=== PATIENT | female | born 1990 | race Caucasian/White ===

== ENCOUNTER 2017-04-28 18:25 | Observation (INO) ==
[2017-04-28 20:13] LABS: Amphetamine Screen,Urine Negative ng/mL (Cutoff=1000); Barbiturate Screen,Urine Negative ng/mL (Cutoff=200); Benzodiazepines Screen,Urine Negative ng/mL (Cutoff=200); Cannabinoid Screen,Urine Negative ng/mL (Cutoff = 50); Cocaine Screen,Urine Negative ng/mL (Cutoff= 300); Opiate Screen,Urine Negative ng/mL (Cutoff=300); Phencyclidine Screen,Urine Negative ng/mL (Cutoff=25)
--- NOTE | 2017-04-28 21:02 | OB/GYN Progress Note ---
Date of Encounter: 04/28/17 Time of Encounter: 21:00 - Assessment and Plan (1) 41 weeks gestation of Current Visit: Yes Status: Acute (2) NST (non-stress test) reactive Current Visit: Yes Status: Acute NST reactive baseline 125. Discharged home with when to call precautions. Discussed with patient risks of continuing past 41 weeks and increase risks of stillbirth and compromise at . Pt verbalizes understanding. Subjective - Subjective Interval history: presents to labor and delivery 41+1 gestation here for NST following office visit. Reports good movement, rare contraction, denies vaginal bleeding or leaking of fluid. Pt states scheduled for IOL tomorrow AM . Antepartum ROS: movement normal, contractions, no loss of fluid, no vaginal bleeding Objective - Vital Signs Vital Signs: Intake and Output 04/28/17 04/28/17 04/28/17 07:59 15:59 23:59 Other: Weight 90.1 kg Patient Weight 04/28/17 23:59 Weight 90.1 kg - Exam FHR: auscultation normal FHR comments: Baseline 125 Auscultation: bilateral: normal Abdomen: Present: normal appearance, soft, gravid Uterus: Present: normal
== END 2017-04-28 21:05 | disposition home or self-care (01) ==
LOC: 1NENULAB
PROVIDERS: ADMIT Obstetrics & Gynecology; ATTEND Obstetrics & Gynecology

== ENCOUNTER 2017-04-29 08:00 | Inpatient (IN) ==
[2017-04-29] MEDS ORDERED: *HR* Nalbuphine 20 MG/ML AMPUL IVP PRN (12:47)
[2017-04-29] MEDS ORDERED: Naloxone 0.4 MG/ML INJ IVP PRN (12:47)
[2017-04-29] MEDS ORDERED: Metoclopramide 10 MG/2 ML VIAL IVP PRN (12:47)
[2017-04-29] MEDS ORDERED: Ondansetron 4 MG/2 ML VIAL IVP PRN (12:47)
[2017-04-29] MEDS ORDERED: miSOPROStol 25 MCG TABLET PO PRN (12:47)
[2017-04-29] MEDS ORDERED: Famotidine 20 MG/2 ML VIAL IVP PRN (12:47)
--- NOTE | 2017-04-29 12:53 | OB/GYN History & Physical ---
Date of Encounter: 04/29/17 Time of Encounter: 13:40 Assessment and Plan (1) 41 weeks gestation of Current visit: Yes Status: Acute Patient is 41w2d presents to L&D for scheduled induction of labor due to postdates Hector induction with 50ml sterile water placed. Pt tolerated insertion well. GBS rapid swab due to previous being done on 03/23/17 LR 125ml/hr CBC UDS Intermittent monitoring. Plan History of Present Illness Chief complaint: Induction of Labor HPI: Ms. Clements is a 27 year old female at 41w2d presents to L&D for induction of labor due to being 41 weeks. Patient denies any contractions, loss of fluid vaginal bleeding or discharge. Reports good movement. Denies any complications with the . States that she is a patient of Dr. Tarun gar. Patient stated that should be prefer to be able to get up and move during her induction and she does have a plan. Blood type A positive GBS negative on 03/23/17 Rubella IgG Antibody Positive VZV IgG antibody Positive All other serologies negative Past Med Surg Social Fam HX - Past Medical History Medical history: no medical history Psychiatric history: depression - Past Surgical History Surgical History: no surgical history - Social History Smoking Status: Current every day smoker (States that she has cut back. Smoking 5 cigarettes a day) Smokeless Tobacco Status: No Alcohol use: none Drug use: none - Family History Mother Adopted: No Living Status: Still Living Hx Family Cardiac Disorders: No Hx Family Respiratory Disorders: No Hx Family Cancer: No Hx Family GI Disorders: No Hx Family Endocrine Disorder: Yes (hypothyroidism) Hx Family Neuromuscular Disorders: No Hx Family Neurologic Disorders: No Hx Family HEENT Disorders: No Hx Family Autoimmune Disorders: No Obstetrical History - Pregnancies : 1 Para: 0 Term: 0 : 0 Ab's: 0 Livin Medications and Allergies Ferrous Sulfate 324 mg PO DAILY 04/28/17 [History] Vitamins 1 tab PO DAILY 04/28/17 [History] 3 Allergy/AdvReac Type Severity Reaction Status Date / Time Sulfa (Sulfonamide Allergy Rash Verified 11/23/15 10:07 Antibiotics) Review of System OB All systems PM: reviewed and no additional remarkable complaints except as stated Exam - Constitutional Constitutional: well developed, well nourished, no acute distress, average body habitus - HEENT HEENT: Normocephaly, Mucus Membranes Moist - Neck Neck exam: full ROM - Lungs Respiratory exam: CTAB - Cardiovascular Cardiovascular exam: RRR, +S1, +S2 - Abdomen Abdomen: Present: bowel sounds normal, gravid, non tender - Extremities Extremities exam: full ROM, normal capillary refill - Vagina Vagina: Present: normal moisture - Cervix Dilation: 1 (Per Slot Machine Key Person) Effacement: 50 (Per coconut jelly roller) Station: -2 (Per coconut jelly roller) - Anus/Rectum Anus/Rectum: Present: normal perianal skin Results Result Diagrams: 04/29/17 12:42 All other labs normal. - VTE Reasons for not Prescribing Prophylaxis: Treatment not Indicated - Low risk for VTE
[2017-04-29] MEDS ORDERED: Ringers Solution, Lactated 1,000 ML IVC SCH (13:00)
[2017-04-29 13:02] LABS: Basophils # 0.1 K/mcL (0.0-0.2); Basophils % 0.4 %; Eosinophils # 0.2 K/mcL (0.0-0.6); Eosinophils % 1.3 %; Hematocrit 34.2 % (35.3-44.9); Hemoglobin 11.9 g/dL (11.5-15.4); Immature Granulocytes % 1.3 % (0-4); Lymphocytes # 2.6 K/mcL (0.6-4.6); Lymphocytes % 18.4 %; Mean Corpuscular HGB Conc 34.8 g/dL (31.6-35.5); Mean Corpuscular Hemoglobin 33.6 pg (28.0-33.3); Mean Corpuscular Volume 96.6 fL (83.0-100.0); Mean Platelet Volume 10.1 fL (9.4-12.4); Monocytes % 6.9 %; Neutrophils # 10.2 K/mcL (1.6-8.9); Platelet Count 281 K/mcL (140-400); Red Blood Count 3.54 M/mcL (3.82-4.97); Red Cell Distribution Width 12.6 % (11.5-14.5); Segmented Neutrophils % 71.7 %
[2017-04-29 13:08] LABS: Amphetamine Screen,Urine Negative ng/mL (Cutoff=1000); Barbiturate Screen,Urine Negative ng/mL (Cutoff=200); Benzodiazepines Screen,Urine Negative ng/mL (Cutoff=200); Cannabinoid Screen,Urine Negative ng/mL (Cutoff = 50); Cocaine Screen,Urine Negative ng/mL (Cutoff= 300); Opiate Screen,Urine Negative ng/mL (Cutoff=300); Phencyclidine Screen,Urine Negative ng/mL (Cutoff=25)
--- NOTE | 2017-04-29 14:44 | Anesthesia Evaluation PreOp ---
Date of Encounter: 04/29/17 Time of Encounter: 14:39 - Past History Planned Operation: vaginal del, G1 induction Cardiac History: Denies any Significant Hx, Other (murmur at , no limitations, MET's >10) Pulmonary History: Denies Any Significant HX DEVELOPMENT EXECUTIVE History: Denies Any Significant HX Other Medical History: Denies Any Significant HX Anesthesia History: Past Anesthesia (no prior anesthesia) : Yes Alcohol Use: none Drug use: none Medications and Allergies Ferrous Sulfate 324 mg PO DAILY 04/28/17 [History] Vitamins 1 tab PO DAILY 04/28/17 [History] 3 Allergy/AdvReac Type Severity Reaction Status Date / Time Sulfa (Sulfonamide Allergy Rash Verified 11/23/15 10:07 Antibiotics) Anesthesia Results - Labs 04/29/17 12:42 Anesthesia Exam - HEENT Pupil (Motor): Pupils equal Mallampati: II Teeth: Normal Oral Opening: Greater than 3 - DEVELOPMENT EXECUTIVE LOC: Oriented DEVELOPMENT EXECUTIVE Motor: Normal RUE, Normal LUE, Normal RLE, Normal LLE, Normal Face DEVELOPMENT EXECUTIVE Sensory: Normal: RUE, LUE, RLE, LLE, Face - Cardiac Rhythm: Regular Murmur: Systolic (1/6) - Pulmonary Breath Sounds: bilateral Clear Respiratory Effort: Symmetrical Anesthesia Assess/Plan ASA Score: 2 Modified [place] Scale for Level of Consciousness: Cooperative, oriented, and tranquil Anesthetic Plan: General, Regional Monitoring Plan: Standard Monitors
[2017-04-29] MEDS ORDERED: Epidural Premix (fent/bupiv) 110 ML EP ONE (14:51)
--- NOTE | 2017-04-29 17:06 | OB Labor Progress Note ---
Date of Encounter: 04/29/17 Time of Encounter: 17:04 Labor Progress Note - Subjective Subjective: Pt reports intermittent pain since sauer placement. - Heart Tones Heart Tones: Category I - [place]: irregular - Interventions Interventions: Sauer taped to leg - Plan Plan: Allow pt to ambulate. Will AROM when sauer out.
--- NOTE | 2017-04-29 22:13 | OB Labor Progress Note ---
Date of Encounter: 04/29/17 Time of Encounter: 22:11 Labor Progress Note - Subjective Subjective: Pt not feeling many contractions. - Cervix Cervix: //-2 - Heart Tones Heart Tones: Category I - [place]: irregular - Interventions Interventions: AROM for small amount clear fluid - Plan Plan: Continue to monitor. Allow pt to ambulate and/or use breastpump. Will consider cytotec or pitocin augmentation if needed after 1-2 hours.
--- NOTE | 2017-04-30 00:53 | OB Labor Progress Note ---
Date of Encounter: 04/30/17 Time of Encounter: 00:51 Labor Progress Note - Subjective Subjective: Pt in knee chest position breathing with contractions - Heart Tones Heart Tones: Category I - [place]: every 3-4 minutes per pt report. - Plan Plan: Continue to monitor. Anticipate .
[2017-04-30] MEDS ORDERED: Famotidine 20 MG/2 ML VIAL IVP ONE (01:22)
--- NOTE | 2017-04-30 01:25 | OB Labor Progress Note ---
Date of Encounter: 04/30/17 Time of Encounter: 01:23 Labor Progress Note - Subjective Subjective: Pt reports severe pain with contractions - Cervix Cervix: 5/90/-1 - Heart Tones Heart Tones: Category I - [place]: every 3-4 minutes per pt report. [place] not tracing well due to maternal movement. - Plan Plan: Pt may her Nubain and pepcid per her request. Anticipate .
[2017-04-30] MEDS ORDERED: Oxytocin 20 units/ LR 1000 mL 20 UNIT/1,000 ML BAG IVC ONE (03:05)
[2017-04-30] MEDS ORDERED: Oxytocin 20 units/ LR 1000 mL 20 UNIT/1,000 ML BAG IVC SCH ×2 (03:15→13:27)
--- NOTE | 2017-04-30 03:18 | OB Labor Progress Note ---
Date of Encounter: 04/30/17 Time of Encounter: 03:17 Labor Progress Note - Subjective Subjective: Pt starting to have worsening pain as Nubain is wearing off. - Cervix Cervix: 5/90/-1 - Heart Tones Heart Tones: Category II, periods of minimal variability, occassional early decelerations. - [place]: Q 4-5 - Plan Plan: Begin pitocin augmentation. Epidural as requested. Anticipate .
--- NOTE | 2017-04-30 04:05 | Anesthesia Procedures ---
Date of Encounter: 04/30/17 Time of Encounter: 03:49 Procedures: Anesthesia - Epidural/Spinal Patient ID/Chart reviewed: Yes Patient examined: Yes OB Eval: Gestational age: term OB Eval: : 1 OB Eval: Contractions: Non-stressed pattern Consent Obtained: Yes Supplemental Oxygen: None/Room Air Site Prep: Aseptic Technique, Sterile prep and drape, 0.5% Chlorhexidine/Alcohol Patient position: upright Local Anesthetic: Lidocaine 1% Amount of Local Anesthetic used: 2 Touhy Needle Gauge: 18 Touhy Needle Depth (cm): 6 Catheter Depth at Skin (cm): 10 Test Dose (1.5% Lido + Epi): Volume given (mls): 3 Test Dose Result: Negative Loading Dose: Other: 12ml from solution Loading Dose Administered: Thru Catheter Infusion Med: 0.125% Bupivacaine w/ 2 mcg/ml Fentanyl Infusion Rate (mls/hr): [address]: Tegaderm, Tape Interspace Used: L3-L4 Loss of Resistance (TIMOTHY): Yes (saline) Blood: No CSF: No Paresthesia: No Procedure: vss though out, FHR stable per RN's
--- NOTE | 2017-04-30 06:59 | OB Labor Progress Note ---
Date of Encounter: 04/30/17 Time of Encounter: 06:57 Labor Progress Note - Subjective Subjective: Pt sleeping at this time. - Cervix Cervix: 6/90/-1 at last check per RN - Heart Tones Heart Tones: Category I - [place]: 2.5-4 minutes - Plan Plan: Continue to monitor and titrate pitocin. Anticipate .
[2017-04-30] MEDS ORDERED: Epidural Premix (fent/bupiv) 110 ML EP ONE (09:08)
--- NOTE | 2017-04-30 10:38 | OB Labor Progress Note ---
Date of Encounter: 04/30/17 Time of Encounter: 10:10 Labor Progress Note - Subjective Subjective: Pt resting in high giles's position. Comfortable with epidural. Pushing with contractions. - Cervix Cervix: Complete - Heart Tones Heart Tones: 150 bpm, moderate variability, no accels, variable and late decels. - [place]: q2-3 - Interventions Interventions: Pt pushing. SVE, FSE placed to better monitor FHR with conractions. - Plan Plan: Continue labor management Anticipate
--- NOTE | 2017-04-30 11:34 | OB/GYN Procedure Note ---
Delivery - Delivery Date: 04/30/17 Provider: Serena Prado (Dr. Bermeo, PGY1) Intrapartum events: none Delivery induction: AROM, oxytocin, sauer Delivery monitor: external FHT, external uterine, internal FHT Anesthesia: epidural Estimated Blood Loss: 475 - (s) A Infant Delivery Date: 04/30/17 Delivery Time: 10:35 Presentation: vertex Position: MILY Route of delivery: Gender: Female Viability: Viable Pounds: 8 Ounces: 4 Weight Gram: 3.745 kg at 1 minute: 8 at 5 mins: 9 Shoulder Dystocia: not encountered Placenta: spontaneous, uterine exploration Cord: nuchal cord (X1), 3 umbilical vessels, delivered through nuchal - Repair Episiotomy: none Laceration Description: Periurethral (right periurethral), Perineal - 2nd Degree - Complications Delivery complications: none - Disposition Mom disposition: stable in LDR disposition: stable in LDR - Comments Comments: Called to LDR for delivery. Patient prepped for vaginal delivery. Under maternal effort patient spontaneously delivered a viable female over a second degree perineal laceration. delivered through a nuchal cord x1, no meconium or shoulder dystocia noted. Infant placed on maternal abdomen. Cord was clamped and cut after pulsation ceased. A second degree perineal laceration was repaired with 3-0 monocryl and right periurethral repaired with 4-0 vicryl. Placenta delivered spontaneously and intact. Both mother and stable for recovery in LDR.
[2017-04-30] MEDS ORDERED: *HR* HYDROcodone/Acet 5/325 mg TABLET PO PRN (13:27)
[2017-04-30] MEDS ORDERED: Lanolin 28 GM TUBE TP PRN (13:27)
[2017-04-30] MEDS ORDERED: Acetaminophen 325 MG TABLET PO PRN (13:27)
[2017-04-30] MEDS ORDERED: Measles/Mumps/Rubella Vacc 0.5 ML VIAL SQ PRN (13:27)
[2017-04-30] MEDS ORDERED: Benzocaine/Menthol 56 GM AEROSOL SPRAY TP PRN (13:27)
[2017-04-30] MEDS: Ibuprofen 600 MG TABLET PO PRN (16:19)
[2017-05-01] MEDS: Ibuprofen 600 MG TABLET PO PRN ×2 (01:00→11:06)
[2017-05-01 06:44] LABS: Basophils # 0.1 K/mcL (0.0-0.2); Basophils % 0.3 %; Eosinophils # 0.2 K/mcL (0.0-0.6); Eosinophils % 0.8 %; Hematocrit 23.4 % (35.3-44.9); Immature Granulocytes % 1.1 % (0-4); Lymphocytes # 3.6 K/mcL (0.6-4.6); Lymphocytes % 16.8 %; Mean Corpuscular HGB Conc 34.2 g/dL (31.6-35.5); Mean Corpuscular Volume 99.6 fL (83.0-100.0); Mean Platelet Volume 9.9 fL (9.4-12.4); Monocytes # 1.8 K/mcL (0.0-1.3); Monocytes % 8.5 %; Neutrophils # 15.4 K/mcL (1.6-8.9); Platelet Count 197 K/mcL (140-400); Red Blood Count 2.35 M/mcL (3.82-4.97); Segmented Neutrophils % 72.5 %
[2017-05-01 08:19] VITALS: BP 89/53
[2017-05-01] MEDS ORDERED: Prenatal Vit/FA 1 EACH TABLET PO SCH (09:00)
--- NOTE | 2017-05-01 10:00 | Discharge Summary ---
Date of Encounter: 05/01/17 Time of Encounter: 09:55 - Discharge Diagnosis (1) Vaginal delivery Priority: Primary Status: Acute Comments: S/P vaginal delivery Day 1 Pain is well controlled Lochia is light and without clots VSS Voiding and passing flatus/stools without difficulty well Discharge home today - Discharge Medications Prescriptions: Ibuprofen [Motrin] 600 mg PO Q6HR PRN #30 tablet PRN Reason: Cramping Breast Pump [BREAST PUMP] 1 each .ROUTE AD #1 each Docusate [Colace] 100 mg PO BID #20 capsule Ferrous Sulfate 325 mg PO DAILY #30 tablet Home Medications: Vitamins 1 tab PO DAILY 04/28/17 [History] Acetaminophen [Tylenol] 650 mg PO Q6HR PRN tablet 05/01/17 [Rx] Benzocaine/Menthol [place] [Dermoplast [place]] 1 appl TP QID PRN aerosol 05/01/17 [Rx] Breast Pump [BREAST PUMP] 1 each .ROUTE AD #1 each 05/01/17 [Rx] Docusate [Colace] 100 mg PO BID #20 capsule 05/01/17 [Rx] Ferrous Sulfate 325 mg PO DAILY #30 tablet 05/01/17 [Rx] Ibuprofen [Motrin] 600 mg PO Q6HR PRN #30 tablet 05/01/17 [Rx] Lanolin 1 appl TP QID PRN tube 05/01/17 [Rx] Allergies/Adverse Reactions: 3 Allergy/AdvReac Type Severity Reaction Status Date / Time Sulfa (Sulfonamide Allergy Rash Verified 11/23/15 10:07 Antibiotics) Data Procedures and tests throughout hospitalization: Laboratory Tests 04/29/17 04/29/17 04/29/17 12:42 12:42 13:42 WBC 14.3 H RBC 3.54 L Hgb 11.9 Hct 34.2 L MCV 96.6 MCH 33.6 H MCHC 34.8 RDW 12.6 Plt Count 281 MPV 10.1 Immature Gran % 1.3 Seg Neutrophils % 71.7 Lymphocytes % 18.4 Monocytes % 6.9 Eosinophils % 1.3 Basophils % 0.4 Neutrophils # 10.2 H Lymphocytes # 2.6 Monocytes # 1.0 Eosinophils # 0.2 Basophils # 0.1 Urine Opiates Screen Negative Ur Barbiturates Screen Negative Ur Phencyclidine Scrn Negative Ur Amphetamines Screen Negative U Benzodiazepines Scrn Negative Urine Cocaine Screen Negative U Marijuana (THC) Screen Negative Group B Strep (PCR) Negative 05/01/17 06:25 WBC 21.2 H RBC 2.35 L Hgb 8.0 L D Hct 23.4 L MCV 99.6 MCH 34.0 H MCHC 34.2 RDW 13.0 Plt Count 197 MPV 9.9 Immature Gran % 1.1 Seg Neutrophils % 72.5 Lymphocytes % 16.8 Monocytes % 8.5 Eosinophils % 0.8 Basophils % 0.3 Neutrophils # 15.4 H Lymphocytes # 3.6 Monocytes # 1.8 H Eosinophils # 0.2 Basophils # 0.1 Urine Opiates Screen Ur Barbiturates Screen Ur Phencyclidine Scrn Ur Amphetamines Screen U Benzodiazepines Scrn Urine Cocaine Screen U Marijuana (THC) Screen Group B Strep (PCR) Labs on day of discharge: Labs from last 24 hours 05/01/17 06:25 WBC 21.2 H RBC 2.35 L Hgb 8.0 L D Hct 23.4 L MCV 99.6 MCH 34.0 H MCHC 34.2 RDW 13.0 Plt Count 197 MPV 9.9 Immature Gran % 1.1 Seg Neutrophils % 72.5 Lymphocytes % 16.8 Monocytes % 8.5 Eosinophils % 0.8 Basophils % 0.3 Neutrophils # 15.4 H Lymphocytes # 3.6 Monocytes # 1.8 H Eosinophils # 0.2 Basophils # 0.1 Date of admission: 04/29/17 12:21 Primary care physician: Raf Chamberlain MD Consults: 04/30/17 13:27 Consult to Adjuster And Inspector [CONS] Routine Comment: Vaginal delivery, consult needed Discharging clinician: Gail Boateng Anticipated date of discharge: 05/01/17 - Patient Status Disposition: Home, Self-Care Condition: Good Functional capacity at discharge: independent ambulation Overall status at discharge: patient is back to baseline - Discharge Instructions Follow Up With: Raf Chamberlain MD [Primary Care Provider] - Serena Prado CNM [Non-Partnered Physician] - - Diet and Activity Activity: increase activity as tolerated Diet: regular diet Hospital Course Reason for admission: IUP at term Delivery: Episiotomy: none Laceration: 2nd degree Other procedures: none complications: none Discharge diagnosis: IUP at term delivered baby: female Time Attestation: Total time spent providing and/or coordinating discharge services: Time Spent: Less than 30 minutes Exam - Constitutional Vitals: Temp Pulse Resp BP Pulse Ox 98.0 F 77 12 89/53 97 05/01/17 08:00 05/01/17 08:00 05/01/17 08:00 05/01/17 08:00 05/01/17 08:00 General appearance IM: cooperative, A&O X 3, pleasant - Respiratory Respiratory exam: Present: CTAB - Cardiovascular Cardiovascular exam IM: Present: RRR, +S1, +S2 - GI/Abdominal GI/Abdominal exam IM: normal bowel sounds, soft Incision: normal, dry, intact - Rectal Rectal exam: deferred - Uterine Tone: Firm Uterus Position: 1 Finger Below Umbilicus, Midline - Extremities Exam Extremities exam IM: Present: normal capillary refill, normal inspection, radial pulses palpable and symmetrical - Neurological Exam Neurological exam: alert, oriented X3
== END 2017-05-01 14:18 | disposition home or self-care (01) | DRG 775 ==
LOC: 1NENULAB 12:21 → 1NENUOBS 04-30 13:24
PROVIDERS: ADMIT Student in an Organized Health Care Education/Training Program; ATTEND Student in an Organized Health Care Education/Training Program